=== PATIENT | male | born 1940 | race Caucasian/White ===

== ENCOUNTER 2016-12-10 05:13 | Inpatient (IN) | payer OTHER ==
[2016-12-05 09:50] LABS: HEMATOCRIT 39.6 % (42.0-52.0); HEMOGLOBIN 13.8 gm/dL (14.0-18.0); MCH 31.6 pg (26.0-34.0); MCHC 34.8 g/dL (28.0-37.0); MCV 90.8 fL (80.0-100.0); RBC 4.36 mil/uL (4.50-6.00); RDW 14.5 % (10.5-14.5); URINE BILIRUBIN NEGATIVE (Negative); URINE BLOOD NEGATIVE (Negative); URINE COLOR YELLOW; URINE GLUCOSE-RANDOM* NEGATIVE (Negative); URINE KETONES NEGATIVE (Negative); URINE LEUKOCYTES-REFLEX NEGATIVE (Negative); URINE PROTEIN (DIPSTICK) NEGATIVE (Negative); URINE UROBILINOGEN 0.2 E.U./dl (0.2-1.0); WBC 6.7 thou/uL (4.0-11.0)
[2016-12-05 09:59] LABS: CALCIUM 9.4 mg/dL (8.5-10.1); CREATININE 1.1 mg/dL (0.6-1.3); POTASSIUM 3.9 mmol/L (3.5-5.1)
[2016-12-05 10:02] LABS: INR 1.1; PROTIME 10.9 Seconds (9.3-11.4)
[~2016-12-10] VITALS: Ht 185.4 cm; Wt 94.3 kg
--- NOTE | ~2016-12-10 | H ---
Formerly [facility] [address] [place] [address] HISTORY AND PHYSICAL Name: TOTH,YURI MAYURI Room #: 547-P DIS IN M.R.#: [id number] Admission: 12/10/16 Attend Phys: Isiah Schneider Discharge: 12/12/16 Date of : 44 Report #: [id number] THIS REPORT FOR: //name// For History and Physical, please see office documentation/handwritten note in the patient's medical record. By: 1032 Isiah Hung MD /
--- NOTE | ~2016-12-10 | O ---
[facility] [place] [address] OPERATIVE REPORT Name: YURI TOTH Room #: 547-P ADM IN M.R.#: [id number] Admission: 12/10/16 Attend Phys: Isiah Schneider Discharge: Date of : 44 Report #: [id number] THIS REPORT FOR: //name// CC: Isiah Martinez DATE OF SURGERY: 12/10/2016. PREOPERATIVE DIAGNOSES: Right shoulder pain, rotator cuff tear arthropathy, biceps tendinopathy. POSTOPERATIVE DIAGNOSES: Right shoulder pain, rotator cuff tear arthropathy, biceps tendinopathy. PROCEDURE PERFORMED: Right reverse total shoulder arthroplasty with open biceps tenodesis. SURGEON: Isiah Hung M.D. COST ACCOUNTING ANALYST: Doretha Frank PA-C. ANESTHESIA: General with preoperative interscalene block by Dr. Montano. FLUIDS: 1600 mL crystalloid. ESTIMATED BLOOD LOSS: Approximately 50 mL. IMPLANTS UTILIZED: DePuy Delta Xtend size 12 SIMMONS coated stem with a size 1 centered epiphysis and +6, 42 mm liner with a 42 mm standard glenoid and standard metaglene as well as two Hicks and Nephew ACCORD 2 mm cables. COMPLICATIONS: Intraoperative proximal humerus fracture requiring cabling. DESCRIPTION OF PROCEDURE: After proper identification of the patient and operative site in preoperative holding area, the operative site was signed by myself. Prophylactic antibiotics given. The patient elected to receive the above postop procedure after anesthesia. Discussed the risks, benefits, alternatives and potential complications of an interscalene block, this was performed by Dr. Montano. He initially inserted an indwelling catheter, but noted some oozing in this area and elected to remove this with his history Plavix use. He was then brought back to the operative suite and placed on the operative table. After induction of satisfactory general endotracheal anesthesia, the right shoulder was sterilely prepped and draped in usual manner. He was placed in the beach chair position with head of bed elevated approximately 40 degrees. Qualified nutrition assistant was utilized throughout the entire procedure to aid in patient limb positioning, visualization and retraction of the soft tissues, instrument passage, closure and sling application. Final skin draping was with [facility] [address] [place] [address] OPERATIVE REPORT Name: YURI TOTH MAYURI Room #: 547-P [facility] IN .R.#: [id number] Admission: 12/10/16 Attend Phys: Isiah Schneider Discharge: Date of : 42 Report #: [id number] Ioban. A [employer] limb positioning system was utilized throughout the entire procedure. An anterior deltopectoral approach was planned. Skin was incised sharply. Full thickness skin flaps were developed. Cephalic vein was identified and retracted laterally. Subdeltoid adhesions were carefully released. Upper border of the pectoralis major was carefully released, long head of biceps tendon was tenodesed to the undersurface of the pectoralis major tendon with #2 FiberWire, the remaining free end of tendon was carefully debrided. The overall quality of the biceps tendon revealed that it was rather small and hypertrophic. The remaining pec was closed at the end of the procedure. At this point, there is evidence of an upper border subscapularis tear and supraspinatus tear portion of the infraspinatus that was still attached, but there was a significant intratendinous tear with more of gelatinous or cystic component within the tendon more posteriorly or more medially within the infraspinatus that revealed intratendinous thickening and this area was debrided, rotator cuff tear arthropathy was noted with primary majority of the degenerative changes noted on the humeral side as compared to the glenoid, subscap was released and intact. Anterior circumflex vessels had been ligated prior to stump so, a brown retractor was used to retract the deltoid. A small amount of the proximal humerus superiorly was removed with an oscillating saw, the created flat surface for the guide insertion. The canal was reamed by hand up to a size 12 stem. This started to provide fit within the canal distally and I did not feel like he can be brought up to a size 14, the guide was assembled and the humerus that was cut in approximately 20 degrees of retroversion. The guide was positioned and then the proximal humerus was cut in approximately 20 degrees retroversion. Peripheral osteophytes were carefully removed, proximal protection plate was placed. At this point, the shoulder was extended, a laminar medical physics professor was used to distract the joint, anterior capsule and labrum was then circumferentially released, the axillary nerve was identified and protected throughout the entire procedure and the inferior capsule was carefully released as well as a small portion of the triceps insertion, there was excellent glenoid exposure, degenerative changes were noted on the glenoid side as well. Anterior Bankart retractor was utilized as well. With the glenoid fully exposed, guidepin was inserted using the metaglene and guidepin guide. This was well seated placed more inferior with the appropriate position and inclination. After this was satisfactory placed, the glenoid face was reamed and the Flip reamer was utilized and any remaining soft tissue or bony prominent was carefully debrided with a rongeur, after the glenoid face was then fully prepared step drill was utilized. Standard metaglene was inserted and had good purchase. Next, the inferior and superior locking screws were placed over guidewires followed by posterior and anterior screws. These were 36, 30, 18 and 24, placed anteriorly. The most inferior three screws had the best purchase, these were sequentially tightened, locking screws were tightened, metaglene was stable. At this point, the acetabular reamer was used to ream proximal humerus and judging the soft tissue tension, a standard 42 mm glenosphere was chosen and this was placed into position, such screw was rotated counterclockwise until a click was noted and it appeared to be fully seated. [address] [address] OPERATIVE REPORT Name: YURI TOTH MAYURI Room #: 547-P ADM IN M.R.#: [id number] Admission: 12/10/16 Attend Phys: Isiah Schneider Discharge: Date of : 42 Report #: [id number] This was then tightened, impacted, tightened, impacted, tightened, impacted and appeared fully seated. Next trial implants were placed, size 12 with 1 epiphysis and +6 liner provided the best overall fit. Trial implants were removed. Joint was thoroughly irrigated with normal saline. Hydroxyapatite coated stem was assembled on the back table. This was impacted into position and was seated nicely. Trial polyethylene was placed and a +6 was again noted to provide the best overall stability of the joint, at this point, this was removed and the +6 polyethylene implant was carefully impacted. it was noted, but there was a chronic within the anterior cortex of the humerus slightly more medial than the bicipital groove and lesser tuberosity. This seemed to occupy the top several centimeters or approximately 2 cm of the humerus and did not extend further distally, based on this #5 FiberWire that was then draped over the proximal humerus and tied while cable system was being prepared. Two Hicks and Nephew 2 mm ACCORD cables were then carefully placed under direct visualization. Proximal humerus was exposed and these were able to be placed over this without any soft tissue impingement. There was no impingement of axillary nerve, it was well inferior to this exposure. After these were carefully placed and positioned, they were tightened and then the locking screw was tightened. These provided a good support and purchase and the inferior cable was placed at the apex of the extension or near the apex or at the apex of the fracture extension with 1 cable superior to this as well as #5 FiberWire, the shoulder was reduced and intraoperative radiographs in AP and oblique planes revealed no fracture extension, the stem appeared to be seated it was rotationally stable, did not subside any further and the subscap was then repaired with #2 FiberWire with the through previously placed drill holes. Wound was thoroughly irrigated with normal saline. One gram of vancomycin powder was placed deep or 1 gram of vancomycin powder was utilized during closure half of it placed deep, half of it more superficial to the deltopectoral closure, 0 Vicryl was used for the deltopectoral closure, 2-0 Vicryl the subcutaneous tissues followed by 4-0 Monocryl. Dermabond was applied. The area had been reprepped with ChloraPrep as well before the sterile dressing was applied, sling and abduction pillow was applied and at time of dictation, he was still in the operative suite. By: 1020 1312 Isiah Hung MD /ben
[~2016-12-10 05:13] MED LIST: ADULT LOW DOSE81 MG PO; ALTACE10 MG PO; ASPIR 8181 MG PO; ASPIRIN81 M2 PO; BIAXIN 500 MG500 M1 PO; CO Q-10100 MG PO; FISHOIL PO; FLUVASTATIN SOD40 MG PO; HYDROCHLOROTHIA25 M1 PO; LIVALO2 MG PO; MULTIVITAMINS PO; PLAVIX 75 MG TA75 M1 PO; PROBIOTIC1 EAC1 PO; PROTONIX40 M1 PO; SYNTHROID PO; SYNTHROID100 MCG PO; VERAPAMIL E.R240 M1 PO; VITAMIN D32000 UNI1 PO
[2016-12-11 05:22] LABS: HEMATOCRIT 33.3 % (42.0-52.0); HEMOGLOBIN 11.2 gm/dL (14.0-18.0); MCH 31.3 pg (26.0-34.0); MCHC 33.8 g/dL (28.0-37.0); MCV 92.7 fL (80.0-100.0); PLATELET COUNT 167 thou/uL (150-400); RBC 3.59 mil/uL (4.50-6.00); RDW 14.6 % (10.5-14.5); WBC 11.6 thou/uL (4.0-11.0)
[2016-12-11 05:35] LABS: MANUAL DIFF YES
[2016-12-11 08:13] LABS: ABSOLUTE NEUTROPHILS 9.9 thou/uL (1.4-8.2); TOTAL CELL COUNT 100
[2016-12-11 08:14] LABS: ANISOCYTOSIS 1+
== END 2016-12-12 15:50 | disposition home or self-care (01) | DRG 483 ==
LOC: 5S 05:13 → TBA 05:13 → PRE 08:34 → 5S 11:37 → PRE 13:58 → 5S 12-12 15:50
PROVIDERS: Orthopaedic Surgery Sports Medicine; Physician Assistant Surgical
PROC: 0RRJ00Z Replacement of Right Shoulder Joint with Reverse Ball and Socket Synthetic Substitute, Open Approach (ICD-10-PCS; principal; 2016-12-10)
DX: M75.101 Unspecified rotator cuff tear or rupture of right shoulder, not specified as traumatic (principal); I25.10 Atherosclerotic heart disease of native coronary artery without angina pectoris; I10 Essential (primary) hypertension; E78.5 Hyperlipidemia, unspecified; E03.9 Hypothyroidism, unspecified; M75.21 Bicipital tendinitis, right shoulder
CPT/HCPCS: 10785; 50010; 50101; 50149; 50172; 50386; 50417; 50612; 50697; 50733; 50935; 51771; 52138; 53078; 53371; 54118; 56521; 56524; 56525; 56526; 56530; 56531; 57095; 62110; 62900; 64042; 64043; 70005

== ENCOUNTER → 2017-01-05 | Outpatient (CLI) | payer OTHER ==
--- NOTE | ~2017-01-05 | 2DMMODE ---
[facility] [place] [address] 2 D/M-MODE ECHOCARDIOGRAM Name: TOTHYURICORAZON MESSINA Room #: REG [facility]#: [id number] Admission: 01/05/17 Attend Phys: Angel Lazo MD Discharge: Date of : 44 Date of Service: 01/05/17 1042 Report #: [id number] THIS REPORT FOR: //name// APPROVED REPORT Study performed: 01/05/2017 09:47:18 EXAM: Comprehensive 2D, Doppler, and color-flow Echocardiogram Patient Location: Out-Patient Blood Pressure: 152/76 mmHg HR: 80 bpm Other Information Study Quality: Good Indications CAD Hypertension/HDD 2D Dimensions RVDd: 40.91 mm LVEF(%): 60.47 (>50%) IVSd: 9.30 (7-11mm) LVOT Diam: 23.43 (18-24mm) LVDd: 43.88 mm PWd: 11.40 (7-11mm) Ascending Aorta: 31.57 mm LVDs: 29.80 (25-40mm) IVC: 26.00 mm Aortic Root: 32.49 mm Jones's LVEF: 60.47 % Volumes Left Atrial Volume (Systole) Single Plane 4CH: 57.40 mL Single Plane 2CH: 51.69 mL LA ESV Index: 28.00 mL/m2 Aortic Valve AoV Peak Ramses.: 2.14 m/s AO Peak Gr.: 18.35 mmHg AO Mean Gr.: 10.79 mmHg LV Max P.00 mmHg LV Mean P.47 mmHg AO V2 VTI: 479.60 mm LV Max: 1.22 m/s DARIUS (VTI): 2.44 cm2 LV Mean: 0.89 m/s LV V1 VTI: 271.53 mm SV (LVOT): 117.06 mL [facility] [place] [address] 2 D/M-MODE ECHOCARDIOGRAM Name: YURI TOTH Room #: REG [facility]#: [id number] Admission: 01/05/17 Attend Phys: Angel Lazo MD Discharge: Date of : 44 Date of Service: 01/05/17 1042 Report #: [id number] Mitral Valve MV PHT: 71.75 ms MV E Max Ramses.: 0.78 m/s E/A Ratio: 0.9 MV A Ramses.: 0.91 m/s MV Decel. Time: 247.42 ms Pulmonary Valve PV Peak Ramses.: 1.36 m/s PV Peak Gr.: 7.38 mmHg Tricuspid Valve TR Peak Ramses.: 2.95 m/s RAP Estimate: 10.00 mmHg TR Peak Gr.: 34.83 mmHg Left Ventricle The left ventricle is normal size. There is normal LV segmental wall motion. There is normal left ventricular wall thickness. The left ventricular systolic function is normal. The left ventricular ejection fraction is within the normal range. LVEF is >55%. Grade I - abnormal relaxation pattern. Right Ventricle Right ventricle size is at the upper limits of normal. The right ventricular systolic function is normal. Atria The left atrium size is normal. Right atrium is mildly dilated. Aortic Valve The aortic valve is normal in structure. Aortic valve is trileaflet. Aortic valve is calcified. No aortic regurgitation is present. Very mild aortic stenosis. Mitral Valve The mitral valve is normal in structure. There is no mitral valve regurgitation noted. Tricuspid Valve The tricuspid valve is normal in structure. There is mild tricuspid regurgitation. The right atrial pressure is estimated at 10 mmHg. There is mild pulmonary hypertension. The estimated PAP was 45 mmHg. Pulmonic Valve The pulmonary valve is normal in structure. There is no pulmonic valvular regurgitation. [facility] [address] [place] [address] 2 D/M-MODE ECHOCARDIOGRAM Name: YURI TOTH MAYURI Room #: REG [facility]#: [id number] Admission: 01/05/17 Attend Phys: Angel Lazo MD Discharge: Date of : 44 Date of Service: 01/05/17 1042 Report #: [id number] Great Vessels The aortic root is normal in size. IVC is dilated and collapses >50% with inspiration. Pericardium There is no pericardial effusion. <Conclusion> The left ventricle is normal size. The left ventricular systolic function is normal. Right ventricle size is at the upper limits of normal. The left atrium size is normal. Aortic valve is calcified. Very mild aortic stenosis. The mitral valve is normal in structure. There is mild tricuspid regurgitation. The right atrial pressure is estimated at 10 mmHg. There is mild pulmonary hypertension. The estimated PAP was 45 mmHg. <ELECTRONICALLY SIGNED> By: Angel Lazo MD 01/05/17 1042 41 [phone] Angel Lazo MD /INF
== END ==
LOC: CV 07:19
DX: I25.10 Atherosclerotic heart disease of native coronary artery without angina pectoris (principal); I10 Essential (primary) hypertension

== ENCOUNTER 2017-05-19 09:04 | Emergency (ER) | payer OTHER ==
[~2017-05-19] VITALS: Ht 188 cm; Wt 74.8 kg
[2017-05-19 09:06] VITALS: BP 162/80
== END 2017-05-19 09:18 | disposition home or self-care (01) ==
LOC: ER 09:04
DX: S91.205A Unspecified open wound of left lesser toe(s) with damage to nail, initial encounter (principal); G47.30 Sleep apnea, unspecified; I10 Essential (primary) hypertension; K21.9 Gastro-esophageal reflux disease without esophagitis; E03.9 Hypothyroidism, unspecified; J44.9 Chronic obstructive pulmonary disease, unspecified; E78.00 Pure hypercholesterolemia, unspecified; W22.8XXA Striking against or struck by other objects, initial encounter; Y93.89 Activity, other specified; Y92.89 Other specified places as the place of occurrence of the external cause; Y99.8 Other external cause status

== ENCOUNTER 2017-07-24 17:10 | Emergency (ER) | payer OTHER ==
[~2017-07-24] VITALS: Ht 185.4 cm; Wt 92.1 kg
[2017-07-24 17:13] VITALS: BP 127/73
== END 2017-07-24 18:43 | disposition home or self-care (01) ==
LOC: ER 17:10
DX: S61.210A Laceration without foreign body of right index finger without damage to nail, initial encounter (principal); I10 Essential (primary) hypertension; K21.9 Gastro-esophageal reflux disease without esophagitis; E78.00 Pure hypercholesterolemia, unspecified; J44.9 Chronic obstructive pulmonary disease, unspecified; E03.9 Hypothyroidism, unspecified; Z98.890 Other specified postprocedural states; Z87.891 Personal history of nicotine dependence; W27.8XXA Contact with other nonpowered hand tool, initial encounter; Y93.89 Activity, other specified; Y92.89 Other specified places as the place of occurrence of the external cause; Y99.0 Civilian activity done for income or pay

== ENCOUNTER → 2018-03-24 | Outpatient (CLI) | payer OTHER ==
[~2018-03-24] VITALS: Ht 185.4 cm; Wt 90.7 kg
[~2018-03-24] MED LIST changes: +LIPITOR 20 MG T20 M1 PO; +SYNTHROID100 MC1 PO
--- NOTE | ~2018-03-24 | P ---
[facility] [place] [address] PROCEDURE REPORT Name: YURI TOTH MAYURI Room #: REG [facility].#: [id number] Admission: 03/24/18 Attend Phys: Lucas Fischer Discharge: Date of : 44 Report #: [id number] THIS REPORT FOR: //name// CC: Lucas Ochoa DATE OF SERVICE: 03/24/2018 PROCEDURE PERFORMED: Colonoscopy. HISTORY OF PRESENT ILLNESS: The patient is a 77-year-old male with a history of colon polyps, last colonoscopy being 2012. He is here for routine followup. Denies any symptoms at this time. No family history of colon cancer. DESCRIPTION OF PROCEDURE: The risks and benefits of the procedure were explained to the patient, those risks including but not limited to bleeding, perforation, the risk of sedation. He understood these risks and gave informed consent. Sedation was given using propofol per anesthesia. Next, a digital rectal exam was initially performed, which was normal. Next, using a standard Olympus colonoscope, the scope was placed in the patient's anus and advanced under direct vision to the cecum. The overall prep was good. The cecum and ileocecal valve were normal in appearance. Ascending, transverse and descending colon were normal. A few scattered diverticula were noted in the sigmoid colon, no evidence of inflammation, otherwise normal. The rectal mucosa was normal. On retroflexion, no abnormalities were seen. The scope was then withdrawn and the procedure terminated. The patient tolerated the procedure well. IMPRESSION: 1. Mild sigmoid diverticulosis. 2. Otherwise, normal colonoscopy. RECOMMENDATIONS: Consider repeat colonoscopy in 10 years. Thank you for allowing me to participate in his care. <ELECTRONICALLY SIGNED> By: Lucas Lancaster MD 03/26/18 1020 1127 1203 Lucas Lancaster MD /nt
== END | disposition home or self-care (01) ==
LOC: GI 09:18
DX: Z12.11 Encounter for screening for malignant neoplasm of colon (principal); K57.30 Diverticulosis of large intestine without perforation or abscess without bleeding; Z86.010 Personal history of colon polyps; I10 Essential (primary) hypertension; I25.10 Atherosclerotic heart disease of native coronary artery without angina pectoris; E78.5 Hyperlipidemia, unspecified; K21.9 Gastro-esophageal reflux disease without esophagitis; E03.9 Hypothyroidism, unspecified; J43.9 Emphysema, unspecified; G47.33 Obstructive sleep apnea (adult) (pediatric); Z85.51 Personal history of malignant neoplasm of bladder; Z96.611 Presence of right artificial shoulder joint; Z87.891 Personal history of nicotine dependence; Z98.890 Other specified postprocedural states; Z79.899 Other long term (current) drug therapy; Z79.82 Long term (current) use of aspirin
CPT/HCPCS: 62110; 62900

== ENCOUNTER → 2018-04-05 | Outpatient (CLI) | payer OTHER | LOC: ULTRA 08:33 | DX: I65.23 Occlusion and stenosis of bilateral carotid arteries (principal); I25.10 Atherosclerotic heart disease of native coronary artery without angina pectoris ==

== ENCOUNTER → 2018-10-07 | Outpatient (CLI) | payer OTHER ==
--- NOTE | 2018-10-07 10:12 | 2DMMODE ---
[facility] [place] [address] 2 D/M-MODE ECHOCARDIOGRAM Name: TOTHYURICORAZON MESSINA Room #: REG [facility]#: [id number] Admission: 10/07/18 Attend Phys: Angel Lazo MD Discharge: Date of : 44 Date of Service: 10/07/18 1011 Report #: [id number] THIS REPORT FOR: //name// APPROVED REPORT Study performed: 10/07/2018 09:21:26 EXAM: Comprehensive 2D, Doppler, and color-flow Echocardiogram Patient Location: Out-Patient Status: routine BSA: 2.17 HR: 71 bpm BP: 155/70 mmHg Other Information Study Quality: Adequate Indications CAD Hypertension/HDD 2D Dimensions RVDd: 38.67 mm IVSd: 12.74 (7-11mm) LVOT Diam: 23.33 (18-24mm) LVDd: 45.36 mm PWd: 10.80 (7-11mm) Ascending Ao: 29.37 (22-36mm) LVDs: 29.31 (25-40mm) Aortic Root: 32.55 mm IVC: 22.00 mm Volumes Left Atrial Volume (Systole) Single Plane 4CH: 81.07 mL Single Plane 2CH: 60.56 mL LA ESV Index: 36.00 mL/m2 Aortic Valve AoV Peak Ramses.: 2.98 m/s AO Peak Gr.: 35.56 mmHg LVOT Max P.55 mmHg AO Mean Gr.: 18.24 mmHg LVOT Mean P.64 mmHg AO V2 Mean: 1.97 m/s LVOT Max V: 1.37 m/s AO V2 VTI: 62.14 cm LVOT Mean V: 0.71 m/s DARIUS (VTI): 2.36 cm2 LVOT V1 VTI: 34.40 cm DARIUS Vmax: 1.97 cm2 SV (LVOT): 146.[address] [facility] [address] 2 D/M-MODE ECHOCARDIOGRAM Name: TOTHYURI Room #: REG [facility]#: [id number] Admission: 10/07/18 Attend Phys: Angel Lazo MD Discharge: Date of : 44 Date of Service: 10/07/18 1011 Report #: [id number] Mitral Valve E/A Ratio: 0.7 MV Decel. Time: 307.36 ms MV E Max Ramses.: 0.74 m/s MV A Ramses.: 1.01 m/s MV PHT: 89.13 ms IVRT: 79.58 ms Pulmonary Valve PV Peak Ramses.: 0.79 m/s PV Peak Gr.: 2.48 mmHg Pulmonary Vein P Vein S: 0.79 m/s P Vein A: 0.33 m/s P Vein D: 0.47 m/s P Vein A Dur.: 100.3 msec P Vein S/D Ratio: 1.68 Tricuspid Valve TR Peak Ramses.: 3.16 m/s RAP Estimate: 10.00 mmHg TR Peak Gr.: 39.82 mmHg PA Pressure: 50.00 mmHg Left Ventricle The left ventricle is normal size. Mild concentric left ventricular hypertrophy. The left ventricular systolic function is normal. The left ventricular ejection fraction is within the normal range. LVEF is 55-60%. Mild diastolic dysfunction is present (impaired relaxation pattern). Right Ventricle Right ventricle is at the upper limits of normal. The right ventricular systolic function is normal. Atria Left atrium is mildly dilated. The right atrium size is normal. Aortic Valve Aortic valve is calcified. No aortic regurgitation is present. There is mild valvular aortic stenosis. Calculated maximum pressure gradient of 36 mmHg and mean pressure gradient of 18 mmHg. Mitral Valve The mitral valve is normal in structure. There is no mitral valve regurgitation noted. No evidence of mitral valve stenosis. [place] [address] 2 D/M-MODE ECHOCARDIOGRAM Name: TOTHYURI DURAN Room #: REG [facility].#: [id number] Admission: 10/07/18 Attend Phys: Angel Lazo MD Discharge: Date of : 44 Date of Service: 10/07/18 1011 Report #: [id number] The tricuspid valve is normal in structure. Trace to mild tricuspid regurgitation. PAP is estimated at 46 mmHg. Pulmonic Valve Pulmonic valve is not well visualized. Trace to mild pulmonic regurgitation. Great Vessels The aortic root is normal in size. IVC is mildly dilated and collapses >50% with inspiration. Pericardium There is no pericardial effusion. <Conclusion> The left ventricle is normal size. Mild concentric left ventricular hypertrophy. The left ventricular systolic function is normal. Mild diastolic dysfunction is present (impaired relaxation pattern). Right ventricle is at the upper limits of normal. Left atrium is mildly dilated. There is mild valvular aortic stenosis. Calculated maximum pressure gradient of 36 mmHg and mean pressure gradient of 18 mmHg. The mitral valve is normal in structure. Trace to mild tricuspid regurgitation. PAP is estimated at 46 mmHg. <ELECTRONICALLY SIGNED> By: Angel Lazo MD 10/07/18 1011 1011 1011 Angel Lazo MD /INF
== END ==
LOC: CV 07:04
DX: I35.0 Nonrheumatic aortic (valve) stenosis (principal); I35.8 Other nonrheumatic aortic valve disorders; I25.10 Atherosclerotic heart disease of native coronary artery without angina pectoris; I10 Essential (primary) hypertension

== ENCOUNTER → 2018-12-06 | Outpatient (CLI) | payer OTHER ==
[~2018-12-06] VITALS: Ht 188 cm; Wt 93.9 kg
--- NOTE | ~2018-12-06 | HPC ---
[facility] [place] [address] PAIN MANAGEMENT CONSULTATION Name: YURI TOTH Room #: REG [facility].#: [id number] Admission: 12/06/18 ������������������ Attend Phys: Azam Siddiqui MD Discharge: ������������������ Date of : 44 Report #: [id number] THIS REPORT FOR: //name// CC: Sarah Siddiqui DATE OF SERVICE: 12/06/2018 CHIEF COMPLAINT: Followup visit for lumbar radiculopathy. The patient returns to pain clinic today complaining of pain that radiates into the left leg. The pain intensity is an 8/10, worse with standing and walking and improved by rest. He has had [address] Ragland and Dr. Alfaro. PQRS REVIEW: He has a history of osteoarthritis of the shoulders and back. Pain intensity is 7-8/10. He is a fall risk. He has fallen once in the last 3 months. He had suffered no injuries, but needs caution because he is on Plavix. He is treated by his primary care physician, Dr. Ochoa for hypertension. All medications have been reviewed and reconciled with the patient. They are on the electronic medical record. He is also on a statin medication. He has completed an opioid risk tool and is considered at low risk, but takes no opioid medication for pain. Functional assessment tool is 48/70. He no longer continues to smoke, but he had a [id number] history. He does not drink alcohol. PHYSICAL EXAMINATION: VITAL SIGNS: He is 6 feet 2 inches, 207 pounds, BMI is 26.6. His blood pressure 143/83, heart rate 71. MUSCULOSKELETAL: He is able to independently move from sitting to standing position. His gait is antalgic. He has pain across his low back. Straight leg raising reproduces pain into the left leg and low back down through the left thigh. Sensation is intact. No focal weakness is noted in the left leg. IMPRESSION: Low back pain with lumbar radiculopathy. RECOMMENDATION: Lumbar epidural steroid injection under fluoroscopic guidance. PROCEDURE: He was taken to the fluoroscopic suite for the procedure, placed prone, skin prepped with ChloraPrep. Skin anesthetized over the L4-L5 interspace. A 20-gauge Tuohy epidural needle advanced in the epidural space with loss of resistance technique. There was no blood nor CSF aspirated. 1 mL of Omnipaque was injected. Good spread of dye observed into the epidural space, was followed by 3 mL of 0.5% lidocaine mixed with 80 mg triamcinolone. He tolerated the procedure well and was observed for 45 minutes and discharged. [address] [address] PAIN MANAGEMENT CONSULTATION Name: TOTHYURICORAZON MESSINA Room #: REG [facility] An.#: [id number] Admission: 12/06/18 ������������������ Attend Phys: Azam Siddiqui MD Discharge: ������������������ Date of : 44 Report #: [id number] It should be noted that prior to the procedure, we performed a timeout as we do on each patient and it was noted and documented that he has been off his Plavix for 7 days prior to the procedure. Follow up as needed for repeat injections. ��������������������������������������������� ���������������������������������������� By: ��������������������������������������������� 1749 0919 Azam Siddiqui MD /nt
[2018-12-06 09:28] VITALS: BP 143/83
--- NOTE | 2018-12-06 10:02 | NUR ---
Pain Clinic Assessment: 1. History of Osteoarthritis: SHOULDERS BACK History of Rheumatoid Arthritis: Not Applicable 2. Height: 6 ft. 2 in. 188.0 cm. Weight: 207.0 lb. oz. 93.895 kg. Patient's BMI: 26.6 3. Vital Signs: BP: 143/83 Pulse: 71 Resp: 16 Temp: 02 Sat: 97 ECG Mon: 4. Pain Intensity: 7-8 5. Fall Risk: Dizziness: N Needs help standing or walking: N Fallen in the last 3 months: Y Fall risk comments: 6. Patient on Blood Thinner: Clopidogrel Bisulf(Plavix 7. History of Hypertension: Y 8. Opioid Therapy greater than 6 weeks: N Opiate Contract Signed: 9. Risk Assessment Tool Provided: 0-LOW RISK 10. Functional Assessment Tool: 11. Recreational Drug Use: Never Drug Type: Tobacco Use: Former Smoker Tobacco Type: Cigarettes Amount or Packs/day: 1-2 PPD How Many Years: 50 Alcohol Use: No Frequency: Quant:
== END ==
LOC: PAIN 06:48
DX: M54.16 Radiculopathy, lumbar region (principal); M76.892 Other specified enthesopathies of left lower limb, excluding foot; I70.0 Atherosclerosis of aorta; M19.012 Primary osteoarthritis, left shoulder; M19.011 Primary osteoarthritis, right shoulder; I10 Essential (primary) hypertension; Z79.891 Long term (current) use of opiate analgesic

== ENCOUNTER → 2018-12-13 | Outpatient (CLI) | payer OTHER ==
[~2018-12-13] VITALS: Ht 188 cm; Wt 98.5 kg
[2018-12-13 15:20] VITALS: BP 147/61
--- NOTE | 2018-12-13 15:31 | NUR ---
Pain Clinic Assessment: 1. History of Osteoarthritis: SHOULDERS BACK History of Rheumatoid Arthritis: Not Applicable 2. Height: 6 ft. 2 in. 188.0 cm. Weight: 217.2 lb. oz. 98.521 kg. Patient's BMI: 27.9 3. Vital Signs: BP: 147/61 Pulse: 87 Resp: 20 Temp: 02 Sat: 97 ECG Mon: 4. Pain Intensity: 7-8 5. Fall Risk: Dizziness: N Needs help standing or walking: N Fallen in the last 3 months: N Fall risk comments: 6. Patient on Blood Thinner: Clopidogrel Bisulf(Plavix 7. History of Hypertension: Y 8. Opioid Therapy greater than 6 weeks: N Opiate Contract Signed: 9. Risk Assessment Tool Provided: 0-LOW RISK 10. Functional Assessment Tool: 11. Recreational Drug Use: Never Drug Type: Tobacco Use: Former Smoker Tobacco Type: Amount or Packs/day: How Many Years: Alcohol Use: No Frequency: Quant:
--- NOTE | 2018-12-22 15:29 | HPC ---
[facility] [place] [address] PAIN MANAGEMENT CONSULTATION Name: YURI TOTH Room #: REG [facility] An.#: [id number] Admission: 12/13/18 ������������������ Attend Phys: Azam Siddiqui MD Discharge: ������������������ Date of : 44 Report #: [id number] THIS REPORT FOR: //name// CC: Sarah Siddiqui DATE OF SERVICE: 12/13/2018 Followup visit for left lumbar radiculopathy. The patient was seen just 7 days ago in the pain clinic. He has returned now for a transforaminal epidural injection on the left. We have discussed this approach as the best approach. In twin level, he has had previous operation. I have discussed the possibility of a 2-level transforaminal injection, but for today, we will inject at the L4-L5 level with anticipation of the medication will spread in cephalad direction as it typically does along the pedicle into the L3-L4 region as well. Potential benefits, risks of the epidural injection were reviewed with the patient once again. He is anxious to proceed. Pain score prior to procedure is 7-8. He was taken to fluoroscopic suite, placed prone, skin prepped with ChloraPrep. Skin anesthetized first over the L4-L5 neural foramen. Using triplanar fluoroscopic views, I advanced needle into the neural foramen and a mL of Omnipaque injected that demonstrates spread into the epidural space and along the L4 nerve root followed by 3 mL of 0.5% lidocaine mixed with 80 mg of triamcinolone. He tolerated the procedure well and was observed for 45 minutes and discharged. Follow up as needed. ��������������������������������������������� <ELECTRONICALLY SIGNED> ���������������������������������������� By: Azam Siddiqui MD ��������������������������������������������� 12/22/18 1529 1810 0140 Azam Siddiqui MD /nt
== END | disposition home or self-care (01) ==
LOC: PAIN 07:09
DX: M54.16 Radiculopathy, lumbar region (principal); G89.29 Other chronic pain; Z87.891 Personal history of nicotine dependence; Z98.890 Other specified postprocedural states; Z79.82 Long term (current) use of aspirin

== ENCOUNTER → 2019-01-13 | Outpatient (CLI) | payer OTHER ==
[~2019-01-13] VITALS: Ht 188 cm; Wt 98.7 kg
--- NOTE | ~2019-01-13 | HPC ---
[place] [address] PAIN MANAGEMENT CONSULTATION Name: YURI TOTH Room #: REG [facility].#: [id number] Admission: 01/13/19 ������������������ Attend Phys: Azam Siddiqui MD Discharge: ������������������ Date of : 44 Report #: [id number] THIS REPORT FOR: //name// CC: Dalia Siddiqui DATE OF SERVICE: 01/13/2019 SUBJECTIVE: Followup visit for lumbar radiculopathy status post laminectomy. The patient returns to pain clinic today and has had 25% improvement following the epidural injection on 12/13/2018. Pain in his legs is somewhat better. We reviewed the x-rays. I used the left transforaminal approach. Pain is primarily today in the left, radiates in the L3-L4 distribution. He says that the pain relief was mostly in the hip and buttock, but he still has some radiating pain down the left leg. Perhaps increasing the volume of injectate or perhaps going one level higher maybe of some benefit. I reviewed his previous films. MEDICATIONS: Reviewed and reconciled. He has been on Plavix, but discontinued it for 7 days in anticipation of injection. All medications are listed on the electronic medical record, may not change from his previous visit. PHYSICAL EXAMINATION: VITAL SIGNS: Blood pressure 145/70, heart rate 78. He is 6 feet 2 inches with a BMI of 27.9. MUSCULOSKELETAL: He moves independently from sitting to standing, does not appear to be a fall risk. The pain is across his low back. He has positive straight leg raising on the left following L3-L4 distribution. Sensation is intact. Some generalized weakness is noted in hip flexion, leg extension on the left in comparison to the right. IMPRESSION: Low back pain with radiculopathy, left L3-L4. RECOMMENDATION: Left L3-L4 transforaminal epidural injection. He was taken to the fluoroscopic suite for the injection, placed prone, skin was prepped with ChloraPrep first over the L4-L5 and then the L3-L4 neural foramen. Using triplanar fluoroscopic views, I advanced ultimately a needle into the L3-L4 neural foramen and 1 mL of Omnipaque demonstrated excellent spread into the anterior epidural space. It was then followed by 3 mL of 0.5% lidocaine with 80 mg of triamcinolone. He tolerated the procedure well and was observed for 45 minutes and discharged. [address] [address] PAIN MANAGEMENT CONSULTATION Name: YURI TOTH Room #: REG CL [place]#: [id number] Admission: 01/13/19 ������������������ Attend Phys: Azam Siddiqui MD Discharge: ������������������ Date of : 44 Report #: [id number] Prior to discharge, he has questions about his knee. I examined his knee and he has localized tenderness in the infrapatellar location. He has an x-ray that I had ordered previously of the knee that shows some evidence of spurring around the patellar tendon. Nerinx that this may be a secondary problem. I have referred him to Dr. Nathaniel Crews who has treated the patient previously. Dr. Crews may have further thoughts as far as diagnostic testing and treatment. Followup visit in our pain clinic in 60-90 days. ��������������������������������������������� ���������������������������������������� By: ��������������������������������������������� 1339 1458 Azam Siddiqui MD /nt
[2019-01-13 09:49] VITALS: BP 145/70
--- NOTE | 2019-01-13 10:01 | NUR ---
Pain Clinic Assessment: 1. History of Osteoarthritis: SHOULDERS BACK History of Rheumatoid Arthritis: Not Applicable 2. Height: 6 ft. 2 in. 188.0 cm. Weight: 217.6 lb. oz. 98.703 kg. Patient's BMI: 27.9 3. Vital Signs: BP: 145/70 Pulse: 78 Resp: 16 Temp: 02 Sat: 97 ECG Mon: 4. Pain Intensity: 8 5. Fall Risk: Dizziness: N Needs help standing or walking: N Fallen in the last 3 months: N Fall risk comments: 6. Patient on Blood Thinner: Clopidogrel Bisulf(Plavix 7. History of Hypertension: Y 8. Opioid Therapy greater than 6 weeks: N Opiate Contract Signed: 9. Risk Assessment Tool Provided: 0-LOW RISK 10. Functional Assessment Tool: 11. Recreational Drug Use: Never Drug Type: Tobacco Use: Former Smoker Tobacco Type: Amount or Packs/day: How Many Years: Alcohol Use: No Frequency: Quant:
== END | disposition home or self-care (01) ==
LOC: PAIN 06:45
DX: M54.16 Radiculopathy, lumbar region (principal); G89.29 Other chronic pain; M96.1 Postlaminectomy syndrome, not elsewhere classified; Z98.890 Other specified postprocedural states; Z79.01 Long term (current) use of anticoagulants; Z87.891 Personal history of nicotine dependence; Z79.82 Long term (current) use of aspirin; Z79.899 Other long term (current) drug therapy

== ENCOUNTER → 2019-04-18 | Outpatient (CLI) | payer OTHER | LOC: ULTRA 09:05 | DX: I65.23 Occlusion and stenosis of bilateral carotid arteries (principal); I25.10 Atherosclerotic heart disease of native coronary artery without angina pectoris; G45.9 Transient cerebral ischemic attack, unspecified; E78.00 Pure hypercholesterolemia, unspecified ==

== ENCOUNTER → 2019-04-28 | Outpatient (CLI) | payer OTHER | LOC: MRI 07:13 | DX: S83.232A Complex tear of medial meniscus, current injury, left knee, initial encounter (principal); S83.282A Other tear of lateral meniscus, current injury, left knee, initial encounter; M25.462 Effusion, left knee; M71.22 Synovial cyst of popliteal space [Baker], left knee; X58.XXXA Exposure to other specified factors, initial encounter; Y93.89 Activity, other specified; Y92.89 Other specified places as the place of occurrence of the external cause; Y99.8 Other external cause status ==

== ENCOUNTER → 2019-06-08 | Outpatient (CLI) | payer OTHER ==
[~2019-06-08] VITALS: Ht 185.4 cm; Wt 95.3 kg
--- NOTE | 2019-06-10 10:37 | P ---
[facility] [place] [address] PROCEDURE REPORT Name: NAVNEETYURI MAYURI [id number] Admission: 06/08/19 ������������������ Attend Phys: Lucas Fischer Discharge: ������������������ Date of : 42 Report #: [id number] THIS REPORT FOR: //name// CC: Lucas Martinez DATE OF SERVICE: 06/08/2019 PROCEDURE PERFORMED: Upper endoscopy with biopsies. HISTORY OF PRESENT ILLNESS: The patient is a 78-year-old male with a history of Browne's esophagus. He is here for routine 3-year followup. He is on daily PPI therapy. Only complaint is burping at times. Denies any dysphagia. DESCRIPTION OF PROCEDURE: The risks and benefits of the procedure were explained to the patient, those risks including but not limited to bleeding, perforation and the risk of sedation. He understood these risks and gave informed consent. Sedation was given using propofol per Anesthesia. Next, using a standard Olympus upper endoscope, the scope was placed in the patient's mouth and advanced under direct vision through the esophagus, stomach, and into the second portion of the duodenum. The larynx was normal in appearance. The upper and mid esophagus was normal. In the distal esophagus, once again a short segment of Browne's was noted; this was approximately 2 cm in length. Biopsies were obtained. No evidence of esophagitis or stricture. Overall, the gastric mucosa was normal. The pylorus was normal and patent. The duodenal bulb, first and second portion were all normal. The scope was then withdrawn and the procedure terminated. The patient tolerated the procedure well. IMPRESSION: 1. Short-segment Browne's esophagus. 2. Otherwise, normal upper endoscopy. RECOMMENDATIONS: 1. Await biopsy results. 2. Continue PPI therapy. Thank you for allowing me to participate in his care. ��������������������������������������������� <ELECTRONICALLY SIGNED> ���������������������������������������� By: Lucas Lancaster MD ��������������������������������������������� 06/10/19 1037 1103 0007 Lucas Lancaster MD /nt
--- NOTE | 2019-06-10 17:09 | PATH ---
[facility] [address] [place] [address] PATHOLOGY RPT PROCEDURE Name: PRAMOD BOSE MAYURI Room #: REG [facility] MLadarius.#: [id number] ������������������ Admission: 06/08/19 ������������������ Date of : 42 Discharge: Report #: [id number] Path Case #: [id number] [facility] Accession Number: [id number] . 01 Material submitted: . esophagus - BX DISTAL ESOPHAGUS. Modifiers: distal . 01 Clinical history: . Hx Browne's esophagus . 02 Diagnosis: Gastric cardia-type mucosa along with squamous mucosa, distal esophagus history of Browne's, endoscopic biopsy: - Specialized columnar epithelium (gastric cardia-type mucosa) with intestinal metaplasia, compatible with Browne's metaplasia. - Negative for dysplasia. - Mild reactive atypia present. - Squamous mucosa with mild esophagitis. (IUV:pit; 06/10/2019) QTP 06/10/2019 1102 Local . 02 Comment: The above diagnosis of Browne's esophagus is made due to presence of intestinal metaplasia and with the assumption that the biopsies were obtained from the columnar mucosa in the distal esophagus located at least 1 cm proximal to the top of the gastric folds as per the 2016 ACG guidelines. (IUV:pit; 06/10/2019) . 02 Electronically signed: . Nicole Guevara MD, Pathologist NPI- [id number] . 01 Gross description: . Received in formalin labeled "Pramod Bose, BX distal esophagus hx Barretts," are two segments of stahl-brown soft tissue measuring 0.3 x 0.2 x 0.2 cm and 0.3 x 0.3 x 0.2 cm in greatest dimensions. The specimen is submitted entirely in cassette A1. (DAC; 06/09/2019) XDC/XDC 06/09/2019 1057 Local . 02 Pathologist provided ICD-10: K22.70, K20.9 . 02 CPT . 774678 Specimen Comment: A courtesy [place] of [place] [address] PATHOLOGY RPT PROCEDURE Name: PRAMOD BOSE MAYURI [id number] ������������������ Admission: 06/08/19 ������������������ Date of : 42 Discharge: Report #: [id number] Path Case #: [id number] Specimen Comment: [phone], . Specimen Comment: Report sent to / DR HOFFMAN Performed at: [address] [facility], [place], [place] [id number] MD Felix Hall MD Phone: [phone] Performed at: [address] [id number] MD Nicole Guevara MD Phone: [phone]
== END | disposition home or self-care (01) ==
LOC: GI 08:35
DX: K22.70 Barrett's esophagus without dysplasia (principal); K20.9 Esophagitis, unspecified; I10 Essential (primary) hypertension; I25.10 Atherosclerotic heart disease of native coronary artery without angina pectoris; E78.5 Hyperlipidemia, unspecified; G47.30 Sleep apnea, unspecified; J43.9 Emphysema, unspecified; K21.9 Gastro-esophageal reflux disease without esophagitis; E78.00 Pure hypercholesterolemia, unspecified; Z98.890 Other specified postprocedural states; Z87.891 Personal history of nicotine dependence; Z79.899 Other long term (current) drug therapy
CPT/HCPCS: 62110; 62900

== ENCOUNTER → 2019-09-01 | Outpatient (CLI) | payer OTHER | LOC: NUC 08:04 | DX: I25.10 Atherosclerotic heart disease of native coronary artery without angina pectoris (principal); E78.5 Hyperlipidemia, unspecified; I10 Essential (primary) hypertension; J44.9 Chronic obstructive pulmonary disease, unspecified; Z87.891 Personal history of nicotine dependence ==

== ENCOUNTER 2019-09-29 05:54 | Day surgery (SDC) | payer OTHER ==
[~2019-09-29] VITALS: Ht 185.4 cm; Wt 98.0 kg
[2019-09-29 07:22] LABS: CALCIUM 9.4 mg/dL (8.5-10.1); CREATININE 1.2 mg/dL (0.7-1.3); POTASSIUM 3.9 mmol/L (3.5-5.1)
[2019-09-29 07:30] VITALS: BP 123/57
[2019-09-29 08:49] VITALS: BP 123/57
--- NOTE | 2019-09-29 08:53 | O ---
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 PROCEDURE: Left knee arthroscopy with partial medial meniscectomy and debridement of medial compartment and patellofemoral compartment chondromalacia. SURGEON: Nathaniel Crews MD INDICATIONS: This slender, fit, active 78-year-old gentleman complains of progressive left knee pain. His clinical exam and x-rays suggest moderate chondromalacia damage and medial meniscus damage. We have discussed treatment measures. He has not seen much improvement with anti-inflammatories or knee injection. He feels his symptoms are not so severe as to require total knee replacement, but are clearly bothersome. Therefore, he has elected to go ahead with arthroscopic debridement. DESCRIPTION OF PROCEDURE: The patient was taken to the operating room where he was placed under general anesthesia. Prophylactic intravenous antibiotics were administered. The left knee and leg were meticulously prepped and draped and a thigh tourniquet applied and inflated to 300 mmHg. A lateral suprapatellar inflow cannula was placed. The knee was inflated with normal saline. The arthroscope and shaver were introduced and the knee was inspected and documented with arthroscopic photography. The medial compartment did reveal moderate chondromalacia over most of the medial femoral condyle with grade 2 to moderately severe grade 3 damage. There were no areas of exposed subchondral bone. There were a few small flap tears, which were debrided and the rest of the surfaces were very gently debrided, removing only the loose, irregular fragmented cartilage. The medial meniscus did demonstrate irregular tearing in the mid medial portion back to the posterior horn. This involved about the inner one-half of the meniscus. This area was debrided and removed. The outer one-half of the meniscus remained intact and appeared stable. There was some loose cartilage debris in the posterior medial corner which was evacuated. The cartilage surfaces on the medial tibial plateau were in better shape with only mild grade 1 to grade 2 chondromalacia damage with some fraying and fissuring but without loose, irregular cartilage damage. No further debridement in the [address] [address] OPERATIVE REPORT Name: YURI TOTH Room #: 150-2 [facility] M.R.#: [id number] Admission: 09/29/19 Attend Phys: Nathaniel Crews MD Discharge: Date of : 42 Report #: [id number] medial compartment was necessary. The chondromalacia of the medial femoral condyle extended anteriorly up to the patellofemoral articulation. This was also grade 2 to moderate grade 3 damage, but there was no exposed subchondral bone. A limited debridement of this irregular cartilage surface was performed. There was also some grade 2 chondromalacia on most of the patella, but there were no areas of severe damage, limited debridement that was also performed. The patella seems to track nicely and appears to be stable. The lateral compartment reveals less significant damage with grade 1 chondromalacia on the lateral femoral condyle and the lateral tibial plateau. There was mild fraying along the inner margin lateral of the meniscus involving only about the inner 10-15%. This was also debrided with a small shaver. No other abnormalities were identified. The entire knee was copiously irrigated. All excess fluid was evacuated. The knee was then injected with 80 mg of Depo-Medrol and 20 mL of 0.5% Marcaine with epinephrine. The puncture sites were closed with interrupted nylon suture. Sterile dressing was applied. The patient was awakened and returned to recovery room in good condition. <ELECTRONICALLY SIGNED> By: Nathaniel Crews MD 09/29/19 0853 0829 0844 Nathaniel Crews MD /nt
== END 2019-09-29 09:10 | disposition home or self-care (01) ==
LOC: TBA 05:54 → OR 05:54 → TBA 05:55 → OR 09:10
PROVIDERS: Orthopaedic Surgery
DX: M25.562 Pain in left knee (principal); M23.222 Derangement of posterior horn of medial meniscus due to old tear or injury, left knee; M23.262 Derangement of other lateral meniscus due to old tear or injury, left knee; M94.262 Chondromalacia, left knee; I10 Essential (primary) hypertension; I25.10 Atherosclerotic heart disease of native coronary artery without angina pectoris; I25.2 Old myocardial infarction; E78.5 Hyperlipidemia, unspecified; M81.0 Age-related osteoporosis without current pathological fracture; E03.9 Hypothyroidism, unspecified; K21.9 Gastro-esophageal reflux disease without esophagitis; G47.30 Sleep apnea, unspecified; J43.9 Emphysema, unspecified; Z98.890 Other specified postprocedural states; Z79.899 Other long term (current) drug therapy; Z96.651 Presence of right artificial knee joint; Z98.41 Cataract extraction status, right eye; Z98.42 Cataract extraction status, left eye; Z85.51 Personal history of malignant neoplasm of bladder
CPT/HCPCS: 50010; 50101; 50405; 51038; 54170; 56526; 57103; 57180; 62110; 62900; 70005

== ENCOUNTER → 2020-03-05 | Outpatient (CLI) | payer OTHER | LOC: SJCVCIMAG 10:44 | PROVIDERS: ATTEND Internal Medicine Cardiovascular Disease | DX: I08.2 Rheumatic disorders of both aortic and tricuspid valves (principal); I25.10 Atherosclerotic heart disease of native coronary artery without angina pectoris; I10 Essential (primary) hypertension; E78.00 Pure hypercholesterolemia, unspecified; Z79.899 Other long term (current) drug therapy; Z87.891 Personal history of nicotine dependence ==

== ENCOUNTER → 2021-03-05 | Outpatient (CLI) | payer OTHER | LOC: SJCVCIMAG 07:40 | PROVIDERS: ATTEND Internal Medicine Cardiovascular Disease | DX: I08.2 Rheumatic disorders of both aortic and tricuspid valves (principal); R93.1 Abnormal findings on diagnostic imaging of heart and coronary circulation; I10 Essential (primary) hypertension; E78.00 Pure hypercholesterolemia, unspecified; R09.89 Other specified symptoms and signs involving the circulatory and respiratory systems; E03.9 Hypothyroidism, unspecified; G47.33 Obstructive sleep apnea (adult) (pediatric); G89.29 Other chronic pain; M17.0 Bilateral primary osteoarthritis of knee; I25.10 Atherosclerotic heart disease of native coronary artery without angina pectoris; I65.29 Occlusion and stenosis of unspecified carotid artery; Z88.8 Allergy status to other drugs, medicaments and biological substances; Z88.0 Allergy status to penicillin; Z88.1 Allergy status to other antibiotic agents; Z79.899 Other long term (current) drug therapy; Z87.891 Personal history of nicotine dependence; Z86.73 Personal history of transient ischemic attack (TIA), and cerebral infarction without residual deficits ==

== ENCOUNTER → 2021-03-14 | Outpatient (CLI) | payer OTHER | LOC: RAD 08:47 | PROVIDERS: ATTEND Internal Medicine Pulmonary Disease | DX: R91.8 Other nonspecific abnormal finding of lung field (principal); J43.9 Emphysema, unspecified ==

== ENCOUNTER → 2021-03-26 | Outpatient (CLI) | payer OTHER | LOC: SJCVC 11:20 | PROVIDERS: ATTEND Internal Medicine Cardiovascular Disease | DX: I10 Essential (primary) hypertension (principal); K21.9 Gastro-esophageal reflux disease without esophagitis; E03.9 Hypothyroidism, unspecified; J43.9 Emphysema, unspecified; G47.33 Obstructive sleep apnea (adult) (pediatric); E78.00 Pure hypercholesterolemia, unspecified; Z86.73 Personal history of transient ischemic attack (TIA), and cerebral infarction without residual deficits ==

== ENCOUNTER → 2021-04-19 | Outpatient (CLI) | payer OTHER | LOC: SJCVCIMAG 09:28 | PROVIDERS: ATTEND Internal Medicine Cardiovascular Disease | DX: I65.23 Occlusion and stenosis of bilateral carotid arteries (principal); I49.1 Atrial premature depolarization; R93.1 Abnormal findings on diagnostic imaging of heart and coronary circulation; I10 Essential (primary) hypertension; E78.00 Pure hypercholesterolemia, unspecified; G47.33 Obstructive sleep apnea (adult) (pediatric); R60.0 Localized edema; G89.29 Other chronic pain; M17.0 Bilateral primary osteoarthritis of knee; E03.9 Hypothyroidism, unspecified; Z88.0 Allergy status to penicillin; Z88.8 Allergy status to other drugs, medicaments and biological substances; Z79.899 Other long term (current) drug therapy; Z87.891 Personal history of nicotine dependence ==

== ENCOUNTER → 2021-06-25 | Outpatient (CLI) | payer OTHER | LOC: SJCVC 10:44 | PROVIDERS: ATTEND Internal Medicine Cardiovascular Disease | DX: I25.10 Atherosclerotic heart disease of native coronary artery without angina pectoris (principal); I10 Essential (primary) hypertension; E78.00 Pure hypercholesterolemia, unspecified; R06.00 Dyspnea, unspecified; J44.9 Chronic obstructive pulmonary disease, unspecified; E03.9 Hypothyroidism, unspecified; G47.30 Sleep apnea, unspecified; I35.0 Nonrheumatic aortic (valve) stenosis; Z86.73 Personal history of transient ischemic attack (TIA), and cerebral infarction without residual deficits; Z88.0 Allergy status to penicillin; Z88.8 Allergy status to other drugs, medicaments and biological substances; Z79.899 Other long term (current) drug therapy; Z87.891 Personal history of nicotine dependence ==

== ENCOUNTER → 2021-07-10 | Outpatient (CLI) | payer OTHER | LOC: RAD 14:23 | PROVIDERS: ATTEND Internal Medicine | DX: U07.1 COVID-19 (principal); J98.4 Other disorders of lung; R06.00 Dyspnea, unspecified ==

== ENCOUNTER → 2021-09-17 | Outpatient (CLI) | payer OTHER | LOC: RAD 11:52 | PROVIDERS: ATTEND Internal Medicine Pulmonary Disease | DX: R91.1 Solitary pulmonary nodule (principal); R06.00 Dyspnea, unspecified ==

== ENCOUNTER → 2021-10-24 | Outpatient (CLI) | payer OTHER | LOC: SJCVC 10:53 | PROVIDERS: ATTEND Internal Medicine Cardiovascular Disease | DX: I25.10 Atherosclerotic heart disease of native coronary artery without angina pectoris (principal); I10 Essential (primary) hypertension; G45.9 Transient cerebral ischemic attack, unspecified; E78.00 Pure hypercholesterolemia, unspecified; I35.0 Nonrheumatic aortic (valve) stenosis; R06.00 Dyspnea, unspecified; Z88.0 Allergy status to penicillin; Z88.8 Allergy status to other drugs, medicaments and biological substances; Z79.899 Other long term (current) drug therapy; F17.210 Nicotine dependence, cigarettes, uncomplicated; E03.9 Hypothyroidism, unspecified ==